=== PATIENT | female | born 1955 | race Caucasian/White ===

== ENCOUNTER 2021-02-22 11:38 | Observation (INO) | payer OTHER ==
[2021-02-22 11:55] LABS: Urine Blood Negative (Negative); Urine Glucose Negative (Negative); Urine Protein Trace (Negative); Urine pH 5.5 (5.0-7.0)
[2021-02-22 12:28] LABS: Urine Bacteria <20 /HPF (<20)
[2021-02-22 12:30] LABS: Urine Other Components 2+ (NONE SEEN)
--- NOTE | 2021-02-22 12:55 | RAD REPORT ---
EXAM DESCRIPTION: CT - Stone Protocol - 02/22/2021 12:32 pm CLINICAL HISTORY: Left flank pain COMPARISON: None. TECHNIQUE: Axial 5 mm thick images were obtained without oral or IV contrast. The [id number] span s the entirety of the system partially obscuring uppermost abdomen and lung bases. All CT scans are performed using dose optimization technique as appropriate and may include automated exposure control or mA/KV adjustment according to patient size. FINDINGS: Trace left pleural fluid with a wedge-shaped defects in the left lower lobe. Small hiatal hernia. Coronary artery calcifications. No pericardial effusion. No focal liver lesions are identified. Cholelithiasis noted. No adrenal masses. Partial gastrectomy. Low-density exophytic right lower pole renal lesion which is likely a cyst. No urinary tract calculi or hydronephrosis identified. Bladder is unremarkable. No bowel obstruction. Diverticulosis without d iverticulitis. Atherosclerosis. Normal appendix. IMPRESSION: No acute intra-abdominal abnormality. Specifically, no urinary tract calculi or hydronep hrosis. Wedge-shaped airspace disease in the left lower lobe could explain the patient's left flank s ymptoms with the differential including infectious or inflammatory processes as well as pulmonary inf arcts.
--- NOTE | 2021-02-22 12:59 | RAD REPORT ---
EXAM DESCRIPTION: RAD - Chest Single View - 02/22/2021 12:47 pm CLINICAL HISTORY: COUGH COMPARISON: Two view chest December 2018 TECHNIQUE: AP portable chest image was obtained 02/22/2021 12:47 pm . FINDINGS: Linear stranding in the mid left lung field is present most likely scarring or chronic ate lectasis. This is progressive from 2019. An acute infiltrate not identified. No acute failure or volu me overload. Heart and vasculature are normal. No measurable pleural effusion and no pneumothorax. No acute bony abnormality seen. No acute aortic findings suspected. IMPRESSION: No acute cardiopulmonary process. Scarring or chronic atelectasis changes are present in the mid left lung field.
[2021-02-22] MEDS ORDERED: CEFTRIAXONE/SWI 1gm 1 GM/10 ML SYR ONE (13:23)
[2021-02-22] MEDS ORDERED: NA CHLORIDE 0.9% 1,000 ML ONE (13:23)
[2021-02-22 13:45] LABS: Albumin 3.1 g/dL (3.4-5.0); Bilirubin Direct 0.5 mg/dL (0-0.2); Bilirubin Total 2.1 mg/dL (0.2-1.0); Potassium 4.2 mmol/L (3.5-5.1); Protein, Total 8.2 g/dL (6.4-8.2)
--- NOTE | 2021-02-22 16:44 | ER ---
Nurse's Notes [facility] [place] Name: Marie Mayer Age: 65 yrs Sex: Female : 1955 Arrival Date: 02/22/2021 Time: 11:42 Bed 24 Private MD: Diagnosis: Pneumonia, unspecified organism;Acute kidney failure, unspecified-on chronic;UTI/ Urinary tract infection, site not specified;Viral pneumonia, unspecified-Covid 19 Presentation: 02/22 11:43 Chief complaint: Patient states: left lower back pain and dark colored urine x 3 days. sv Sent by Dr Breen. Coronavirus screen: Client denies travel out of the [place] in the last 14 days. At this time, the client does not indicate any symptoms associated with coronavirus-19. Ebola Screen: No symptoms or risks identified at this time. Risk Assessment: Do you want to hurt yourself or someone else? Patient reports no desire to harm self or others. Onset of symptoms was February 19, 2021. 11:43 Method Of Arrival: Ambulatory sv 11:43 Acuity: CANDIDO 3 sv 11:45 Initial Sepsis Screen: Does the patient meet any 2 criteria? No. Patient's initial sv sepsis screen is negative. Does the patient have a suspected source of infection? No. Patient's initial sepsis screen is negative. Triage Assessment: 11:43 General: Appears in no apparent distress. comfortable, well developed, Behavior is sv calm, cooperative, appropriate for age. Pain: Denies pain. Neuro: Level of Consciousness is awake, alert, obeys commands, Oriented to person, place, time, situation, Gait is steady. Respiratory: Respiratory effort is even, unlabored. Historical: - Allergies: 11:44 No Known Drug Allergies; sv - PMHx: 15:33 Stage 3 Kidney Disease; vg1 - PSHx: 11:44 Knee; gastric sleeve; sv - Immunization history:: Client reports having NOT received the Covid vaccine. - Social history:: Smoking status: Patient denies any tobacco usage or history of. - Family history:: not pertinent. Screenin:38 Abuse screen: Denies threats or abuse. Nutritional screening: No deficits noted. vg1 Tuberculosis screening: No symptoms or risk factors identified. Fall Risk No fall in past 12 months (0 pts). No secondary diagnosis (0 pts). IV access (20 points). Ambulatory Aid- None/Bed Rest/Nurse Assist (0 pts). Gait- Normal/Bed Rest/Wheelchair (0 pts) Mental Status- Oriented to own ability (0 pts). Total Simpson Fall Scale indicates No Risk (0-24 pts). Assessment: 12:18 General: Appears in no apparent distress. comfortable, Behavior is calm, cooperative. vg1 Pain: Complains of pain in left mid back Pain currently is 1 out of 10 on a pain scale. at worst was 6 out of 10 on a pain scale. Quality of pain is described as sharp, Pain began 2-3 days ago. Neuro: Level of Consciousness is awake, alert, obeys commands, Oriented to person, place, time, situation. Cardiovascular: Patient's skin is warm and dry. Respiratory: Airway is patent Respiratory effort is even, unlabored. GI: Patient currently denies nausea, vomiting. : Reports dark urine Denies burning with urination, inability to void, urinary frequency. EENT: No signs and/or symptoms were reported regarding the EENT system. Derm: Skin is intact, is healthy with good turgor. Musculoskeletal: Circulation, motion, and sensation intact. 14:19 Reassessment: Patient appears in no apparent distress at this time. No changes from vg1 previously documented assessment. Patient and/or family updated on plan of care and expected duration. Pain level reassessed. Patient is alert, oriented x 3, equal unlabored respirations, skin warm/dry/pink. 15:32 Reassessment: Patient appears in no apparent distress at this time. No changes from vg1 previously documented assessment. Patient is alert, oriented x 3, equal unlabored respirations, skin warm/dry/pink. Patient denies pain at this time. 16:41 Reassessment: Patient appears in no apparent distress at this time. No changes from vg1 previously documented assessment. Patient and/or family updated on plan of care and expected duration. Pain level reassessed. Patient is alert, oriented x 3, equal unlabored respirations, skin warm/dry/pink. Patient denies pain at this time. 19:15 Reassessment: Attempted to call report, nurse unavailable to receive report at this ld1 time. 20:22 Reassessment: Patient appears in no apparent distress at this time. No changes from ld1 previously documented assessment. Patient and/or family updated on plan of care and expected duration. Pain level reassessed. Patient is alert, oriented x 3, equal unlabored respirations, skin warm/dry/pink. Vital Signs: 11:45 BP 109 / 74; Pulse 88; Resp 16; Temp 98.6; Pulse Ox 99% ; Weight 128.82 kg; Height 5 sv ft. 7 in. (170.18 cm); Pain 0/10; 12:18 BP 119 / 83; Pulse 77; Resp 16; Pulse Ox 98% on R/A; vg1 13:00 BP 108 / 71; Pulse 76; Resp 14; Pulse Ox 100% on R/A; vg1 14:00 BP 120 / 83; Pulse 70; Resp 14; Pulse Ox 100% on R/A; vg1 15:00 BP 119 / 78; Pulse 77; Resp 16; Pulse Ox 96% on R/A; vg1 16:00 BP 127 / 82; Pulse 74; Resp 14; Pulse Ox 99% on R/A; vg1 20:22 BP 124 / 86; Pulse 76; Resp 16; Pulse Ox 99% on R/A; ld1 11:45 Body Mass Index 44.48 (128.82 kg, 170.18 cm) sv ED Course: 11:42 Patient arrived in ED. rg4 11:43 Arm band placed on. sv 11:44 Triage completed. sv 12:13 Rk Correa MD is Attending Physician. chase 12:32 CT Stone Protocol In Process Unspecified. EDMS 12:36 Lorenza Carmona, RN is Primary Nurse. vg1 12:38 Patient has correct armband on for positive identification. Bed in low position. Call vg1 light in reach. Side rails up X 1. Adult w/ patient. 12:47 Chest Single View XRAY In Process Unspecified. EDMS 13:16 Initial lab(s) drawn, by me, sent to lab. Missed attempt(s): 22 gauge in right vg1 antecubital area. 13:25 Inserted saline lock: 22 gauge in left antecubital area, using aseptic technique. mw2 16:41 Shine Breen MD is Hospitalizing Provider. chase 20:55 No provider procedures requiring assistance completed. Patient admitted, IV remains in ld1 place. intact, bleeding controlled, No redness/swelling at site. Administered Medications: 13:25 Drug: NS 0.9% 500 ml Route: IV; Rate: bolus; Site: left antecubital; vg1 16:37 Follow up: IV Status: Completed infusion; IV Intake: 500ml vg1 13:28 Drug: Rocephin (cefTRIAXone) 1 grams Route: IV; Rate: per protocol; Site: left vg1 antecubital; 16:37 Follow up: Response: No adverse reaction; IV Status: Completed infusion vg1 14:08 Drug: NS 0.9% 1000 ml Route: IV; Rate: 125 ml/hr; Site: left antecubital; vg1 17:48 Drug: Zithromax (azithromycin) 500 mg Route: IVPB; Infused Over: 1 hrs; Site: left vg1 antecubital; 17:49 Drug: Lovenox (enoxaparin) 40 mg Route: Sub-Q; Site: left upper abdomen; vg1 18:43 Follow up: Response: No adverse reaction vg1 18:55 Drug: Albuterol HFA Inhaler 4 puffs Route: Inhalation; vg1 18:56 Drug: Aspirin 81 mg Route: PO; vg1 18:57 Drug: Pepcid (famotidine) 20 mg Route: IVP; Site: left antecubital; vg1 18:59 Drug: SOLU-Medrol (methylPrednisoLONE) 125 mg Route: IVP; Site: left antecubital; vg1 Intake: 16:37 IV: 500ml; Total: 500ml. vg1 Outcome: 16:44 Decision to Hospitalize by Provider. [facility] 20:55 Admitted to Med/surg accompanied by tech, via stretcher, room 6, with chart, Report ld1 called to BART Cheng. 20:55 Condition: stable 20:56 Patient left the ED. ld1 Signatures: Dispatcher [employer] EDAdele Mensah RN RN sv Anderson, Corey, MD MD cha Garcia, Rubi 4 Noel Dean 2 Lorenza Carmona RN RN vg1 Tomeka Jarvis RN RN ld1 Corrections: (The following items were deleted from the chart) 11:47 11:45 Pulse 88bpm; Resp 16bpm; Pulse Ox 99%; Temp 98.6F; 128.82 kg; Height 5 ft. 7 in.; sv BMI: 44.4; Pain 0/10; sv 13:25 13:25 Inserted saline lock: 22 gauge in left antecubital area, using aseptic technique. mw2 Blood collected. mw2 14:07 14:07 NS 0.9% 1000 ml IV at 125 ml/hr in right antecubital vg1 vg1 15:33 11:44 PMHx: None; sv vg1
--- NOTE | 2021-02-22 16:44 | EDPHYS ---
Physician Documentation [facility] Name: Marie Mayer Age: 65 yrs Sex: Female : 1955 Arrival Date: 02/22/2021 Time: 11:42 Bed 24 Private MD: LISA Physician Rk Correa HPI: 02/22 16:37 This 65 yrs old Female presents to ER via Ambulatory with complaints of Low chase Back Pain. 16:37 The patient presents with pain that is acute, with no known mechanism of injury. The chase symptoms are located in the left subscapular area and left mid back. The pain does not radiate. The problem was sustained from unknown cause. Onset: The symptoms/episode began/occurred 3 day(s) ago. Modifying factors: The patient symptoms are alleviated by remaining still, the patient symptoms are aggravated by nothing. Associated signs and symptoms: The patient has no apparent associated signs or symptoms. Severity of symptoms: At their worst the symptoms were moderate, in the emergency department the symptoms are unchanged. The patient has not experienced similar symptoms in the past. Historical: - Allergies: 11:44 No Known Drug Allergies; sv - PMHx: 15:33 Stage 3 Kidney Disease; vg1 - PSHx: 11:44 Knee; gastric sleeve; sv - Immunization history:: Client reports having NOT received the Covid vaccine. - Social history:: Smoking status: Patient denies any tobacco usage or history of. - Family history:: not pertinent. ROS: 16:37 Constitutional: Negative for fever, chills, and weight loss, Eyes: Negative for injury, chase pain, redness, and discharge, ENT: Negative for injury, pain, and discharge, Neck: Negative for injury, pain, and swelling, Cardiovascular: Negative for chest pain, palpitations, and edema, Abdomen/GI: Negative for abdominal pain, nausea, vomiting, diarrhea, and constipation, : Negative for injury, bleeding, discharge, and swelling, MS/Extremity: Negative for injury and deformity, Skin: Negative for injury, rash, and discoloration, Neuro: Negative for headache, weakness, numbness, tingling, and seizure, Psych: Negative for depression, anxiety, suicide ideation, homicidal ideation, and hallucinations, Allergy/Immunology: Negative for hives, rash, and allergies, Endocrine: Negative for neck swelling, polydipsia, polyuria, polyphagia, and marked weight changes, Hematologic/Lymphatic: Negative for swollen nodes, abnormal bleeding, and unusual bruising. 16:37 Respiratory: Positive for cough, shortness of breath, at rest. 16:37 Back: Positive for decreased range of motion, pain at rest, flank pain, on the left. Exam: 16:37 Constitutional: This is a well developed, well nourished patient who is awake, alert, chase and in no acute distress. Head/Face: Normocephalic, atraumatic. Eyes: Pupils equal round and reactive to light, extra-ocular motions intact. Lids and lashes normal. Conjunctiva and sclera are non-icteric and not injected. Cornea within normal limits. Periorbital areas with no swelling, redness, or edema. ENT: Nares patent. No nasal discharge, no septal abnormalities noted. Tympanic membranes are normal and external auditory canals are clear. Oropharynx with no redness, swelling, or masses, exudates, or evidence of obstruction, uvula midline. Mucous membranes moist. Neck: Trachea midline, no thyromegaly or masses palpated, and no cervical lymphadenopathy. Supple, full range of motion without nuchal rigidity, or vertebral point tenderness. No Meningismus. Chest/axilla: Normal chest wall appearance and motion. Nontender with no deformity. No lesions are appreciated. Cardiovascular: Regular rate and rhythm with a normal S1 and S2. No gallops, murmurs, or rubs. Normal PMI, no JVD. No pulse deficits. Respiratory: Lungs have equal breath sounds bilaterally, clear to auscultation and percussion. No rales, rhonchi or wheezes noted. No increased work of breathing, no retractions or nasal flaring. Abdomen/GI: Soft, non-tender, with normal bowel sounds. No distension or tympany. No guarding or rebound. No evidence of tenderness throughout. Back: No spinal tenderness. No costovertebral tenderness. Full range of motion. Female : Normal external genitalia. Skin: Warm, dry with normal turgor. Normal color with no rashes, no lesions, and no evidence of cellulitis. MS/ Extremity: Pulses equal, no cyanosis. Neurovascular intact. Full, normal range of motion. Neuro: Awake and alert, GCS 15, oriented to person, place, time, and situation. Cranial nerves II-XII grossly intact. Motor strength 5/5 in all extremities. Sensory grossly intact. Cerebellar exam normal. Normal gait. Psych: Awake, alert, with orientation to person, place and time. Behavior, mood, and affect are within normal limits. Vital Signs: 11:45 BP 109 / 74; Pulse 88; Resp 16; Temp 98.6; Pulse Ox 99% ; Weight 128.82 kg; Height 5 sv ft. 7 in. (170.18 cm); Pain 0/10; 12:18 BP 119 / 83; Pulse 77; Resp 16; Pulse Ox 98% on R/A; vg1 13:00 BP 108 / 71; Pulse 76; Resp 14; Pulse Ox 100% on R/A; vg1 14:00 BP 120 / 83; Pulse 70; Resp 14; Pulse Ox 100% on R/A; vg1 15:00 BP 119 / 78; Pulse 77; Resp 16; Pulse Ox 96% on R/A; vg1 16:00 BP 127 / 82; Pulse 74; Resp 14; Pulse Ox 99% on R/A; vg1 20:22 BP 124 / 86; Pulse 76; Resp 16; Pulse Ox 99% on R/A; ld1 11:45 Body Mass Index 44.48 (128.82 kg, 170.18 cm) sv MDM: 12:13 Patient medically screened. [facility] 16:39 Differential diagnosis: strain, fracture, contusion. Data reviewed: vital signs, nurses chase notes, lab test result(s), EKG, radiologic studies, CT scan, plain films. 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 Test interpretation: by ED physician or midlevel provider: ECG, plain radiologic studies. Counseling: I had a detailed discussion with the patient and/or guardian regarding: the historical points, exam findings, and any diagnostic results supporting the discharge/admit diagnosis, lab results, radiology results, the need for further work-up and treatment in the hospital. 02/22 11:55 Order name: Urine Microscopic Only; Complete Time: 16:19 sv 02/22 11:55 Order name: Urine Dipstick-Ancillary; Complete Time: 12:14 EDMS 02/22 12:16 Order name: Basic Metabolic Panel; Complete Time: 16:19 chase 02/22 12:16 Order name: CBC with Diff; Complete Time: 17:01 [facility] 02/22 12:16 Order name: Hepatic Function; Complete Time: 16:19 [facility] 02/22 12:16 Order name: Lipase; Complete Time: 16:19 [facility] 02/22 12:16 Order name: Chest Single View XRAY; Complete Time: 16:19 [facility] 02/22 12:16 Order name: Urine Culture [facility] 02/22 16:35 Order name: COVID-19 : Document "Date of Symptom Onset" if Symptomatic. [facility] 02/22 16:40 Order name: Lactate; Complete Time: 17:52 [facility] 02/22 16:40 Order name: Blood Culture Adult (2) [facility] 02/22 17:03 Order name: D-Dimer [facility] 02/22 17:44 Order name: D-Dimer; Complete Time: 17:52 [facility] 02/22 18:34 Order name: SARS-COV-2 RT PCR; Complete Time: 18:35 [facility] 02/22 12:16 Order name: IV Saline Lock; Complete Time: 13:25 [facility] 02/22 12:16 Order name: CT Stone Protocol; Complete Time: 16:19 [facility] 02/22 16:35 Order name: CT Chest Wo Con [facility] 02/22 16:44 Order name: US Extremity Venous W Compression Suresh [facility] 02/22 16:54 Order name: Vent Perfusion VQ Scan [facility] 02/22 19:09 Order name: CT [facility] 02/22 19:09 Order name: US [facility] 02/22 12:16 Order name: Labs collected and sent; Complete Time: 13:16 [facility] Administered Medications: 13:25 Drug: NS 0.9% 500 ml Route: IV; Rate: bolus; Site: left antecubital; vg1 16:37 Follow up: IV Status: Completed infusion; IV Intake: 500ml vg1 13:28 Drug: Rocephin (cefTRIAXone) 1 grams Route: IV; Rate: per protocol; Site: left vg1 antecubital; 16:37 Follow up: Response: No adverse reaction; IV Status: Completed infusion vg1 14:08 Drug: NS 0.9% 1000 ml Route: IV; Rate: 125 ml/hr; Site: left antecubital; vg1 17:48 Drug: Zithromax (azithromycin) 500 mg Route: IVPB; Infused Over: 1 hrs; Site: left vg1 antecubital; 17:49 Drug: Lovenox (enoxaparin) 40 mg Route: Sub-Q; Site: left upper abdomen; vg1 18:43 Follow up: Response: No adverse reaction vg1 18:55 Drug: Albuterol HFA Inhaler 4 puffs Route: Inhalation; vg1 18:56 Drug: Aspirin 81 mg Route: PO; vg1 18:57 Drug: Pepcid (famotidine) 20 mg Route: IVP; Site: left antecubital; vg1 18:59 Drug: SOLU-Medrol (methylPrednisoLONE) 125 mg Route: IVP; Site: left antecubital; vg1 Disposition Summary: 02/22/21 16:44 Hospitalization Ordered Hospitalization Status: Inpatient Admission chase Provider: Shine Breen cha Condition: Stable chase Problem: new chase Symptoms: have improved chase Bed/Room Type: Standard chase Location: Intensive Care Unit(02/22/21 18:50) dw Room Assignment: 6-(02/22/21 18:50) dw Diagnosis - Pneumonia, unspecified organism chase - Acute kidney failure, unspecified - on chronic chase - UTI/ Urinary tract infection, site not specified chase - Viral pneumonia, unspecified - Covid 19 chase Forms: - Medication Reconciliation Form chase - SBAR form chase Signatures: Dispatcher [employer] Adele Bhakta RN Ariella Roper RN RN dw Anderson, Corey, MD MD cha Garcia, Victoria RN RN vg1 Corrections: (The following items were deleted from the chart) 15:33 11:44 PMHx: None; vg1 18:50 16:44 Telemetry/MedSurg (Inpatient) chase dw 18:50 16:44 chase dw
[2021-02-22 16:54] LABS: Absolute Lymphocytes (CBC) 1.6 K/uL (0.7-4.9); Basophils % 0.7 % (0-1.3); Hematocrit 31.5 % (36.0-45.0); Lymphocytes % 19.8 % (15.3-44.8); MPV 7.9 fL (7.6-11.3); RBC Red Blood Cell Count 3.53 M/uL (3.86-4.86)
[2021-02-22] MEDS ORDERED: NA CHLORIDE 0.9% 250 ML ONE (17:08)
[2021-02-22] MEDS ORDERED: AZITHROMYCIN 500 MG INJ IVPB ONE (17:08)
[2021-02-22] MEDS ORDERED: ENOXAPARIN 40 MG/0.4 ML SQ ONE (17:12)
--- NOTE | 2021-02-22 19:07 | RAD REPORT ---
EXAM DESCRIPTION: US - Extrem Venous W Compress Suresh - 02/22/2021 6:33 pm CLINICAL HISTORY: PAIN COMPARISON: None. TECHNIQUE: Real-time sonographic evaluation of the bilateral lower extremity common femoral, superfi cial femoral, popliteal and posterior tibial veins was performed. FINDINGS: Normal compressibility, flow augmentation, phasic flow and spontaneous flow are identified in the left and right lower extremity common femoral, superficial femoral, popliteal and posterior t ibial veins. No intraluminal filling defects seen. IMPRESSION: No DVT in either lower extremity.
--- NOTE | 2021-02-22 19:07 | RAD REPORT ---
EXAM DESCRIPTION: CT - Thorax Wo Con - 02/22/2021 5:09 pm CLINICAL HISTORY: PAIN, left-sided back and flank pain, history of gastric sleeve COMPARISON: Stone Protocol dated 02/22/2021 TECHNIQUE: Axial 5 mm thick images of the chest were obtained without IV contrast. All CT scans are performed using dose optimization technique as appropriate and may include automated exposure control or mA/KV adjustment according to patient size. FINDINGS: No acute infiltrate suspected. Irregular areas of subpleural parenchymal opacification see n in the lateral and posterlateral left base similar to the abdomen study from earlier in the day. Th is is probably a combination of atelectasis and scarring. Acute infiltrates possible but probably les ser in likelihood. Neoplastic etiology is unlikely but monitoring will be needed to assure no growth. Trace amount of pleural fluid seen in the medial gutter on the left. No pneumothorax. No abnormal mediastinal or hilar masses or lymphadenopathy seen. No gross aortic or pulmonary artery finding suspected. Assessment is limited in the absence of IV contrast. No chest wall mass or abnormal axillary lymphadenopathy. Limited upper abdomen imaging shows postsurgical changes to the stomach. Small hiatal hernia is prese nt. IMPRESSION: Left base subpleural parenchymal opacification favored to be a combination of scarring a nd atelectasis. Infiltrate is a lesser likelihood. Mass lesion is also felt be unlikely but monitoring will be needed with repeat CT imaging in 6-12 mon ths.
[2021-02-22] MEDS ORDERED: ASPIRIN 81 MG CHEWABLE TABLET ONE (19:08)
[2021-02-22] MEDS ORDERED: ALBUTEROL INHALER 60 PUFF/8 GM IH ONE (19:08)
[2021-02-22] MEDS ORDERED: FAMOTIDINE 20 MG/2 ML VIAL IV ONE (19:08)
[2021-02-22] MEDS ORDERED: METHYLPREDNISOLONE 125 MG INJ ONE (19:08)
[2021-02-22] MEDS ORDERED: ENOXAPARIN 30 MG/0.3 ML SQ SCH (20:57)
[2021-02-22] MEDS ORDERED: ALBUTEROL INHALER 60 PUFF/8 GM IH PRN (20:57)
[2021-02-22] MEDS ORDERED: ONDANSETRON 4 MG/2 ML VIAL IV PRN (20:57)
[2021-02-22] MEDS ORDERED: ALBUTEROL 2.5 MG/3 ML NEB SOL NEB PRN (20:57)
[2021-02-22] MEDS ORDERED: ACETAMINOPHEN 325 MG TABLET PO PRN (20:57)
[2021-02-22] MEDS ORDERED: MORPHINE 2 MG/ML SYR IV PRN (20:57)
[2021-02-22] MEDS ORDERED: IPRATROPIUM BROM 0.5MG/2.5ML NEB PRN (20:57)
[2021-02-22] MEDS ORDERED: NA CHLORIDE 0.9% 1,000 ML IV SCH (20:57)
[2021-02-22] MEDS ORDERED: CEFTRIAXONE 1 GM/NS 50 ML 1 GM/50 ML BAG IV SCH (21:00)
[2021-02-22 21:24] VITALS: BMI 44.4
[2021-02-22 21:35] VITALS: O2SAT 96
[2021-02-22] MEDS: FAMOTIDINE 20 MG/2 ML VIAL IV SCH (22:16)
[2021-02-22] MEDS: NA CHLORIDE 0.9% 1,000 ML IV SCH (23:30)
[2021-02-23] MEDS: METHYLPREDNISOLONE 40 MG INJ IV SCH ×2 (00:14→09:58)
--- NOTE | 2021-02-23 00:48 | HP ---
Date of Admission: 02/22/2021 Chief Complaint: Abdominal pain. History Of Present Illness: This is a 65-year-old very pleasant female patient who called office tojose antonio perez requesting appointment because she was concerned about kidney stone or kidney infection. The haily ent was seen after she called office, and she reported she started to have this left-sided abdominal pain in the left posterior flank region and that is why she called the office for appointment. She s ays that she took Augmentin for 5 days, which was prescribed by her [facility], and this Au gmentin was started on 02/07/2021 for sinus infection type of problem. As of past weekend on February 19, 2021, she started to have left posterior flank pain. Has had some fever and chills and as of February, her pain got better but did not go away completely. She feels like her urine is darker in co zhane than normal, but denies any dysuria. Today, she feels weak and dizzy, and she took her blood pre ssure medication this morning, and when I saw her at office, her manual blood pressure was 90/60. Af ter I evaluated her, I advised her to go to the emergency room. Details were discussed with ER physi cians and workup was requested, and after all the workup completed, the patient was admitted to [facility]. Allergies: TO CIPRO CAUSING JOINT PAIN. Medications: Amlodipine 5 mg daily, atorvastatin 20 mg daily in the evening, carvedilol 6.25 mg 2 ti mes a day, famotidine 40 mg p.o. daily at bedtime, levothyroxine 75 mcg p.o. daily, Claritin 10 mg da chapin as needed for allergies, vitamin B12 1 mg p.o. daily. Review of Systems: GI: As mentioned above. Constitutional: As mentioned above. Genitourinary: As mentioned above. All other systems reviewed and negative. Past Medical History: Significant for allergic rhinitis, hypothyroidism, hypertension, hyperlipidemi a, gastroesophageal reflux disease, diverticulosis, chronic kidney disease stage 3, osteoarthritis at multiple sites. Past Surgical History: Gastric sleeve surgery on September 26, 2012 and her weight prior to surgery wa s 344 pounds. Past surgical history also significant for arthroplasty of knee done on January 28, 2019 a nd July 30, 2018. Family History: Mother had coronary artery disease, atrial fibrillation, diabetes, and , b laurent with coronary artery disease. Social History: Prior history of smoking, not at present time. Use of alcohol, glass of wine weekly . Physical Examination: Vital Signs: At office manual blood pressure 90/60, pulse 76, temperature 95.3, respiratory rate 18, weight 284 pounds, height 67 inches. General: Awake, alert, oriented, not in distress. HEENT: Head atraumatic, normocephalic. Conjunctivae nonerythematous. Sclerae white. Mouth, no thr ush or edema noted. Ears/Nose, no mass, lesion, discharge noted. Neck: Supple. No JVD, lymph nodes, bruit, thyromegaly noted. Lungs: Bilateral good equal air entry. Clear to auscultation. No rhonchi. No rales. Heart: Normal heart sounds, no murmur or gallop. Abdomen: Soft, bowel sounds normal. No guarding, rigidity, mass, hepatosplenomegaly, distention, or bruit noted. Abdominal exam shows presence of mild tenderness in the left posterior and lateral flan k region. Extremities: No leg edema. No calf tenderness. Skin: No rash, ulcer, cellulitis. Lymphatics: No lymph node enlargement in neck, supraclavicular, infraclavicular region. Neuro: No focal neurological deficit. Chest: Unremarkable. External Genitalia: Deferred. Rectal: Deferred. Laboratory Data: White count 8.1, hemoglobin 11, platelets 245. D-dimer 1942. Sodium 136, potassiu m 4.2, chloride 103, bicarb 26, BUN 22, creatinine 1.83, glucose 98, lactic acid 1.6, total bilirubin 2.1. Rest of the liver function tests unremarkable. Lipase 126. Urinalysis; 1+ leukocyte esterase , 5 to 10 rbc's, trace protein. Chest x-ray, no acute cardiopulmonary changes. CAT scan of abdomen was unremarkable for any acute changes. No kidney stone, but it did show wedge-shaped density in the left lower lobe. CAT scan of the chest without contrast shows left basal opacity. Venous Doppler o f both lower extremities negative for DVT and COVID-19 test positive. Impression: 1.COVID-19 infection. 2.Pneumonia. 3.Volume depletion. 4.Chronic kidney disease stage 3 with acute worsening. 5.Anemia due to chronic kidney disease. 6.Hypertension. 7.Hyperlipidemia. 8.Gastroesophageal reflux disease. 9.Hypothyroidism. 10.Diverticulosis. 11.Osteoarthritis, multiple sites. Plan: Admit the patient to hospital for further evaluation and management of this problem. The haily ent is appropriate for inpatient and is expected to spend 2 midnights in the hospital. Her D-dimer i s high, but clinically she is at low probability from pulmonary embolism. V/Q scan will be done john rrow. The patient received 40 mg of Lovenox subcutaneous injection in the emergency room and we will continue Lovenox 40 mg daily. We will treat her empirically with Rocephin and azithromycin, IV Solu -Medrol per order. We will also give her ivermectin per order. Consult data officer, Dr. Kirby. We will repeat blood work tomorrow morning. Home medications will be continued per order. As of t omorrow morning, Dr. Denise, hospitalist will be covering this patient in my absence, and I have call ed him and discussed all the details with him. BRYAN/MODL Voice ID: [id number]
[2021-02-23 04:11] VITALS: TEMP 97.2
[2021-02-23 05:13] LABS: Absolute Lymphocytes (CBC) 0.6 K/uL (0.7-4.9); Basophils % 0.2 % (0-1.3); Hematocrit 33.1 % (36.0-45.0); Lymphocytes % 9.4 % (15.3-44.8); MPV 8.1 fL (7.6-11.3); RBC Red Blood Cell Count 3.66 M/uL (3.86-4.86)
[2021-02-23 05:29] LABS: Potassium 4.7 mmol/L (3.5-5.1)
--- NOTE | 2021-02-23 05:53 | P.PN ---
Subjective Date of Service: 02/23/21 Physical Examination - Vital Signs Temperature: 97.2 F Blood Pressure: 125/70 Pulse: 78 Respirations: 17 Pulse Ox (%): 97 - Studies Laboratory Data (last 24 hrs) 02/22/21 16:44: WBC 8.10, Hgb 11.0 L, Hct 31.5 L, Plt Count 245 02/22/21 13:15: Sodium 136, Potassium 4.2, BUN 22 H, Creatinine 1.83 H, Glucose 98, Total Bilirubin 2.1 H, AST 13 L, ALT 20, Alkaline Phosphatase 70, Lipase 126 Assessment & Plan Discharge Plan: Home Physician Review Additional Text: Physical Examination: Vital Signs: General: Awake, alert, oriented, not in distress. HEENT: Head atraumatic, normocephalic. Conjunctivae nonerythematous. Sclerae white. Mouth, no thrush or edema noted. Ears/Nose, no mass, lesion, discharge noted. Neck: Supple. No JVD, lymph nodes, bruit, thyromegaly noted. Lungs: Bilateral good equal air entry. Clear to auscultation. No rhonchi. No rales. Heart: Normal heart sounds, no murmur or gallop. Abdomen: Soft, bowel sounds normal. No guarding, rigidity, mass, hepato splenomegaly, distention, or bruit noted. Abdominal exam shows presence of mild tenderness in the left posterior and lateral flank region. Extremities: No leg edema. No calf tenderness. Skin: No rash, ulcer, cellulitis. Lymphatics: No lymph node enlargement in neck, supraclavicular, infraclavicular region. Neuro: No focal neurological deficit. Chest: Unremarkable. External Genitalia: Deferred. Rectal: Deferred. Laboratory Data: White count 8.1, hemoglobin 11, platelets 245. D-dimer 1942. Sodium 136, potassium 4.2, chloride 103, bicarb 26, BUN 22, creatinine 1.83, glucose 98, lactic acid 1.6, total bilirubin 2.1. Rest of the liver function tests unremarkable. Lipase 126. Urinalysis; 1+ leukocyte esterase, 5 to 10 rbc's, trace protein. Chest x-ray, no acute cardiopulmonary changes. CAT scan of abdomen was unremarkable for any acute changes. No kidney stone, but it did show wedge-shaped density in the left lower lobe. CAT scan of the chest without contrast shows left basal opacity. Venous Doppler of both lower extremities negative for DVT and COVID-19 test positive. Impression: COVID-19 infection. Pneumonia. Volume depletion. Chronic kidney disease stage 3 with acute worsening. Anemia due to chronic kidney disease. Hypertension. Hyperlipidemia. Gastroesophageal reflux disease. Hypothyroidism. Diverticulosis. Osteoarthritis, multiple sites. Plan: Admit the patient to hospital for further evaluation and management of this problem. The patient is appropriate for inpatient and is expected to spend 2 midnights in the hospital. Her D-dimer is high, but clinically she is at low probability from pulmonary embolism. V/Q scan will be done tomorrow. The patient received 40 mg of Lovenox subcutaneous injection in the emergency room and we will continue Lovenox 40 mg daily. We will treat her empirically with Rocephin and azithromycin, IV Solu-Medrol per order. We will also give her ivermectin per order. Consult material man, Dr. Kirby. We will repeat blood work tomorrow morning. Home medications will be continued per order. As of tomorrow morning, Dr. Denise, hospitalist will be covering this patient in my absence, and I have called him and discussed all the details with him.
--- NOTE | 2021-02-23 08:02 | RAD REPORT ---
EXAM DESCRIPTION: RAD - Chest Single View - 02/23/2021 5:58 am CLINICAL HISTORY: Chest pain COMPARISON: Chest CT from 02/22/2021 TECHNIQUE: AP portable chest image was obtained . FINDINGS: Similar scarring in the left mid lung. Faint increasing airspace opacities in the upper luis ngs bilaterally. The heart size is similar. No fractures are identified. No pneumothorax or pleural e ffusions are seen. Visualized upper abdomen is unremarkable. IMPRESSION: Increased prominence of some of the upper lung interstitial markings probably a reflecti on of technique. Pneumonia less likely.
--- NOTE | 2021-02-23 08:45 | P.CNS ---
Date of Consult: 02/23/21 Reason for Consult: Abnormal CT Chief Complaint: Abnormal CT scan History of Present Illness: Patient is 65 years of age admitted from the office for suspicion of for renal infection she had some left-sided abdominal pain denied any pulmonary symptoms as treated with Augmentin denies any urinary tract symptoms tested positive for merino virus CT scan shows some pleural changes on the left lung no evidence of merino virus induced lung injury Allergies No Known Drug Allergies Allergy (Verified 02/23/21 00:05) Unknown Home Medications: Atorvastatin Calcium 1 tab PO BEDTIME 02/22/21 Famotidine 1 tab PO DAILY 02/22/21 Levothyroxine Sodium [Levothyroxine] 1 tab PO DAILY 02/22/21 Loratadine [Claritin*] 1 tab PO DAILY 02/22/21 carvediloL [Carvedilol] 1 tab PO BID 02/22/21 Amoxicillin/Potassium Clav [Augmentin 500-125 Tablet] 0.5 each PO BID #14 tablet 02/23/21 Ascorbate Calcium [Vitamin C] 500 mg PO TID #90 tablet 02/23/21 Aspirin [Aspirin EC 81 MG] 81 mg PO DAILY #30 tablet. 02/23/21 Cholecalciferol (Vitamin D3) [Vitamin D 1000 Iu Tab] 2,000 unit PO DAILY #60 tab 02/23/21 Thiamine HCl 100 mg PO BID #60 tablet 02/23/21 Zinc Sulfate [Zinc Sulfate*] 220 mg PO DAILY #30 cap 02/23/21 - Past Medical/Surgical History -: Stage 3 Kidney Disease -: Hypertension -: Hyperlipidemia -: Hypothyroidism -: GERD -: Knee Surgery -: Gastric Sleeve - Social History Smoking Status: Never smoker Alcohol use: Yes CD- Drugs: No Caffeine use: Yes Place of Residence: Home Review of Systems 10-point ROS is otherwise unremarkable Physical Examination Temp Pulse Resp BP Pulse Ox 97.2 F 78 17 125/70 97 02/23/21 05:53 02/23/21 05:53 02/23/21 05:53 02/23/21 05:53 02/23/21 05:53 General: Alert, Oriented x3 Neck: Supple Respiratory: Clear to auscultation bilaterally Laboratory Data (last 24 hrs) 02/22/21 16:44: WBC 8.10, Hgb 11.0 L, Hct 31.5 L, Plt Count 245 02/22/21 13:15: Sodium 136, Potassium 4.2, BUN 22 H, Creatinine 1.83 H, Glucose 98, Total Bilirubin 2.1 H, AST 13 L, ALT 20, Alkaline Phosphatase 70, Lipase 126 - Problems (1) Abnormal CT scan of lung Current Visit: Yes Status: Acute Plan: Patient is 65 years of age incidental positive for merino virus came in with the left lower back pain previous history of UTI apparently felt the same as per patient denies any pulmonary complaints multiple pleural abnormalities in the left-sided niece to be followed up doubt merino virus pneumonia patient is chronic renal failure vital signs stable doubt pulmonary embolism mild anemia recommend discharge home follow with me in a month repeat a CT scan this added this low-dose aspirin no steroids no fever urine cultures negative blood cultures pending
--- NOTE | 2021-02-23 08:46 | P.DS ---
Admission Date: 02/22/21 Discharge Date: 02/23/21 Primary Care Provider: Dr. Breen Disposition: ROUTINE DISCHARGE Discharge Condition: GOOD Reason for Admission: Left Flank pain Consultations: Pulmonary-Dr. Kirby Procedures: COVID: Positive CT chest: FINDINGS: No acute infiltrate suspected. Irregular areas of subpleural parenchymal opacification seen in the lateral and posterlateral left base similar to the abdomen study from earlier in the day. This is probably a combination of atelectasis and scarring. Acute infiltrates possible but probably lesser in likelihood. Neoplastic etiology is unlikely but monitoring will be needed to assure no growth. Trace amount of pleural fluid seen in the medial gutter on the left. No pneumothorax. No abnormal mediastinal or hilar masses or lymphadenopathy seen. No gross aortic or pulmonary artery finding suspected. Assessment is limited in the absence of IV contrast. No chest wall mass or abnormal axillary lymphadenopathy. Limited upper abdomen imaging shows postsurgical changes to the stomach. Small hiatal hernia is present. IMPRESSION: Left base subpleural parenchymal opacification favored to be a combination of scarring and atelectasis. Infiltrate is a lesser likelihood. Mass lesion is also felt be unlikely but monitoring will be needed with repeat CT imaging in 6-12 months. Follow up CXR: FINDINGS: Similar scarring in the left mid lung. Faint increasing airspace opacities in the upper lungs bilaterally. The heart size is similar. No fractures are identified. No pneumothorax or pleural effusions are seen. Visualized upper abdomen is unremarkable. IMPRESSION: Increased prominence of some of the upper lung interstitial markings probably a reflection of technique. Pneumonia less likely. CT AB: FINDINGS: Trace left pleural fluid with a wedge-shaped defects in the left lower lobe. Small hiatal hernia. Coronary artery calcifications. No pericardial effusion. No focal liver lesions are identified. Cholelithiasis noted. No adrenal masses. Partial gastrectomy. Low-density exophytic right lower pole renal lesion which is likely a cyst. No urinary tract calculi or hydronephrosis identified. Bladder is unremarkable. No bowel obstruction. Diverticulosis without diverticulitis. Atherosclerosis. Normal appendix. IMPRESSION: No acute intra-abdominal abnormality. Specifically, no urinary tract calculi or hydronephrosis. Wedge-shaped airspace disease in the left lower lobe could explain the patient's left flank symptoms with the differential including infectious or inflammatory processes as well as pulmonary infarcts. Venous doppler: FINDINGS: Normal compressibility, flow augmentation, phasic flow and spontaneous flow are identified in the left and right lower extremity common femoral, superficial femoral, popliteal and posterior tibial veins. No in traluminal filling defects seen. IMPRESSION: No DVT in either lower extremity. Medical Problem List: Left flank pain with noted left base subpleural opacification likely scarring/atelectasis possible pneumonia Covid 19 positive asymptomatic Hypertension Acute on chronic renal disease stage III GERD with hiatal hernia Hyperlipidemia Brief History of Present Illness: 65-year-old female presented with left flank pain. Patient was seen by PCP due to possible kidney stone or kidney infection. Patient denied any significant chest pain, shortness of breath. Patient recently seen for upper respiratory sinus infection and provided Augmentin. Patient reported some fever and chills as of February 20. Pain has not improved. Patient was sent to the ER for further evaluation as blood pressure appeared low. Patient was given IV fluids. In the ER white count within normal range. Urinalysis unremarkable. Patient was found to be positive for COVID-19. CT scan showed left base subpleural opacification favoring scarring with atelectasis. Venous Doppler negative due to elevated D-dimer. Patient was admitted for further evaluation and treatment. Hospital Course: Patient presented with left flank pain. Patient was admitted for further evaluation. In the ER D-dimer was elevated. Venous Doppler negative. Urinalysis unremarkable. Patient recently treated for upper respiratory sinus infection. CT scan revealed left base subpleural opacification favoring scarring and atelectasis. Chest x-ray showed possible pneumonia. Patient was given IV fluids, steroid, and antibiotic therapy. Patient was found to be positive for COVID-19. No significant COVID-19 symptoms identified. Patient w as admitted for further evaluation and treatment. Due to elevated D-dimer there was some consideration of VQ scan. Patient was seen and evaluated by pulmonology. VQ scan cannot be performed due to COVID-19 protocol. Pulmonology felt this was not required. Pulmonology believes flank pain related to left base scarring/atelectasis or pneumonia. Low suspicion for pulmonary embolus noted. Patient has significantly improved. Patient on room air. White count remains in normal range. Pulmonology recommends to continue Augmentin 250 mg twice daily for 7 days. No need for steroids at this time. Patient will continue with vitamin supplementation for COVID-19 infection. Patient will continue with zinc 220 mg daily, thiamine 100 mg 1 pill twice daily, vitamin C 500 mg 3 times a day and vitamin D 2000 units daily. Patient may continue with yogurt or lactobacillus [id number]. The patient will also continue with aspirin 81 mg daily for at least 1 month. Patient may continue with albuterol inhaler 2 puffs 3 times a day as needed for shortness of breath. Patient will continue with CDC guidelines on COVID-19 isolation. Recommend incentive spirometer which will be provided. Recommend proning. Recommend social distancing, facemask use, and frequent handwashing. Education on atelectasis will be provided. Recommend follow-up with pulmonology in 1 to 2 weeks to follow-up his hospitalization. Recommend repeat CT scan in 3 to 6 months to reassess the scarring. This can be done with the help of pulmonology. Recommend follow-up with PCP in 1 to 2 weeks to follow-up hospitalization to continue her care. Patient with acute on chronic renal disease stage III. Patient appeared to be with mild volume depletion. With IV fluid hydration this has improved. Recommend increase fluid intake for the next couple of days. Recommend to recheck labBMP in 1 week. Recommend no further use of nonsteroidal to inflammatories. Future medications may need to be renally dosed. Patient with hypertension. Patient will continue with her current medicationcarvedilol 6.25 mg 1 pill twice daily. Recommend to maintain blood pressure less than 130/80. Further adjustment can be done by her PCP. Recommend to hold medication if blood pressure less than 110. Follow-up with PCP to further monitor and adjust medication. Patient with hyperlipidemia. At discharge she will continue with her medicationLipitor 20 mg daily. Patient with GERD and hiatal hernia. At discharge she will continue with her medicationPepcid 20 mg daily. Patient with hypothyroidism. At discharge patient continue with her medicationlevothyroxine 75 mcg daily. Vital Signs/Physical Exam: Temp Pulse Resp BP Pulse Ox 97.2 F 78 17 125/70 97 02/23/21 05:53 02/23/21 05:53 02/23/21 05:53 02/23/21 05:53 02/23/21 05:53 General: Alert, In no apparent distress, Oriented x3, Cooperative HEENT: Atraumatic Neck: Supple Respiratory: Clear to auscultation bilaterally, Normal air movement Cardiovascular: Normal pulses, Regular rate/rhythm Gastrointestinal: Normal bowel sounds, Soft and benign, Non-distended, No tenderness, No masses, No rebound, No guarding Musculoskeletal: No erythema, No tenderness, No warmth Integumentary: No tenderness/swelling Neurological: Normal speech, Normal strength at 5/5 x4 extr, Normal tone, Normal affect Laboratory Data at Discharge: WBC 6.30 K/uL (4.3-10.9) D 02/23/21 04:51 Hgb 11.1 g/dL (12.0-15.0) L 02/23/21 04:51 Hct 33.1 % (36.0-45.0) L 02/23/21 04:51 Plt Count 265 K/uL (152-406) 02/23/21 04:51 Sodium 137 mmol/L (136-145) 02/23/21 04:51 Potassium 4.7 mmol/L (3.5-5.1) 02/23/21 04:51 BUN 24 mg/dL (7-18) H 02/23/21 04:51 Creatinine 1.47 mg/dL (0.55-1.3) H 02/23/21 04:51 Glucose 136 mg/dL (74-106) H 02/23/21 04:51 Total Bilirubin 2.1 mg/dL (0.2-1.0) H 02/22/21 13:15 AST 13 U/L (15-37) L 02/22/21 13:15 ALT 20 U/L (12-78) 02/22/21 13:15 Alkaline Phosphatase 70 U/L (45-117) 02/22/21 13:15 Troponin I < 0.02 ng/mL (0.0-0.045) 02/23/21 00:56 Lipase 126 U/L (73-393) 02/22/21 13:15 Home Medications: Atorvastatin Calcium 1 tab PO BEDTIME 02/22/21 Famotidine 1 tab PO DAILY 02/22/21 Levothyroxine Sodium [Levothyroxine] 1 tab PO DAILY 02/22/21 Loratadine [Claritin*] 1 tab PO DAILY 02/22/21 carvediloL [Carvedilol] 1 tab PO BID 02/22/21 Amoxicillin/Potassium Clav [Augmentin 500-125 Tablet] 0.5 each PO BID #14 tablet 02/23/21 Ascorbate Calcium [Vitamin C] 500 mg PO TID #90 tablet 02/23/21 Aspirin [Aspirin EC 81 MG] 81 mg PO DAILY #30 tablet. 02/23/21 Cholecalciferol (Vitamin D3) [Vitamin D 1000 Iu Tab] 2,000 unit PO DAILY #60 tab 02/23/21 Thiamine HCl 100 mg PO BID #60 tablet 02/23/21 Zinc Sulfate [Zinc Sulfate*] 220 mg PO DAILY #30 cap 02/23/21 New Medications: Aspirin [Aspirin EC 81 MG] 81 mg PO DAILY #30 tablet. Amoxicillin/Potassium Clav [Augmentin 500-125 Tablet] 0.5 each PO BID #14 tablet Thiamine HCl 100 mg PO BID #60 tablet Ascorbate Calcium [Vitamin C] 500 mg PO TID #90 tablet Cholecalciferol (Vitamin D3) [Vitamin D 1000 Iu Tab] 2,000 unit PO DAILY #60 tab Zinc Sulfate [Zinc Sulfate*] 220 mg PO DAILY #30 cap Physician Discharge Instructions: Patient presented with left flank pain. Patient was admitted for further evaluation. In the ER D-dimer was elevated. Venous Doppler negative. Uri nalysis unremarkable. Patient recently treated for upper respiratory sinus infection. CT scan revealed left base subpleural opacification favoring scarring and atelectasis. Chest x-ray showed possible pneumonia. Patient was given IV fluids, steroid, and antibiotic therapy. Patient was found to be positive for COVID-19. No significant COVID-19 symptoms identified. Patient was admitted for further evaluation and treatment. Due to elevated D-dimer there was some consideration of VQ scan. Patient was seen and evaluated by pulmonology. VQ scan cannot be performed due to COVID-19 protocol. Pulmonology felt this was not required. Pulmonology believes flank pain related to left base scarring/atelectasis or pneumonia. Low suspicion for pulmonary embolus noted. Patient has significantly improved. Patient on room air. White count remains in normal range. Pulmonology recommends to continue Augmentin 250 mg twice daily for 7 days. No need for steroids at this time. Patient will c ontinue with vitamin supplementation for COVID-19 infection. Patient will continue with zinc 220 mg daily, thiamine 100 mg 1 pill twice daily, vitamin C 500 mg 3 times a day and vitamin D 2000 units daily. Patient may continue with yogurt or lactobacillus [id number]. The patient will also continue with aspirin 81 mg daily for at least 1 month. Patient may continue with albuterol inhaler 2 puffs 3 times a day as needed for shortness of breath. Patient will continue with CDC guidelines on COVID-19 isolation. Recommend incentive spirometer which will be provided. Recommend proning. Recommend social distancing, facemask use, and frequent handwashing. Education on atelectasis will be provided. Recommend follow-up with pulmonology in 1 to 2 weeks to follow-up his hospitalization. Recommend repeat CT scan in 3 to 6 months to reassess the scarring. This can be done with the help of pulmonology. Recommend follow-up with PCP in 1 to 2 weeks to follow-up hospitalization to continue her care. Patient with acute on chronic renal disease stage III. Patient appeared to be with mild volume depletion. With IV fluid hydration this has improved. Recommend increase fluid intake for the next couple of days. Recommend to recheck labBMP in 1 week. Recommend no further use of nonsteroidal to inflammatories. Future medications may need to be renally dosed. Patient with hypertension. Patient will continue with her current medicationcarvedilol 6.25 mg 1 pill twice daily. Recommend to maintain blood pressure less than 130/80. Further adjustment can be done by her PCP. Recommend to hold medication if blood pressure less than 110. Follow-up with PCP to further monitor and adjust medication. Patient with hyperlipidemia. At discharge she will continue with her medic ationLipitor 20 mg daily. Patient with GERD and hiatal hernia. At discharge she will continue with her medicationPepcid 20 mg daily. Patient with hypothyroidism. At discharge patient continue with her medicationlevothyroxine 75 mcg daily. Diet: AHA Activity: Ad bev Followup: NONE,NONE [Primary Care Provider] - Time spent managing pt's care (in minutes): 55
[2021-02-23] MEDS ORDERED: carvediloL 6.25 MG TAB PO SCH (09:00)
[2021-02-23] MEDS ORDERED: AMLODIPINE 5 MG TAB PO SCH (09:00)
[2021-02-23] MEDS ORDERED: LEVOTHYROXINE SOD 0.075 MG TAB PO SCH (09:00)
[2021-02-23] MEDS ORDERED: IVERMECTIN 3 MG TABLET PO ONE (09:00)
[2021-02-23] MEDS ORDERED: ASPIRIN 81 MG CHEWABLE TABLET PO SCH (09:00)
[2021-02-23] MEDS ORDERED: LORATADINE 10 MG TAB PO SCH (09:00)
[2021-02-23 09:02] LABS: Blood Morphology Comment NOT SEEN (NOT SEEN); Platelet Estimate ADEQ; White Blood Cell Scan OK (OK)
[2021-02-23] MEDS: FAMOTIDINE 20 MG/2 ML VIAL IV SCH (09:58)
[2021-02-23] MEDS: NA CHLORIDE 0.9% 1,000 ML IV SCH (09:58)
[2021-02-23] MEDS ORDERED: CEFTRIAXONE/SWI 1gm 1 GM/10 ML SYR IV SCH ×2 (12:00)
[2021-02-23 12:37] VITALS: BP 149/96
[2021-02-23] MEDS ORDERED: ENOXAPARIN 40 MG/0.4 ML SQ SCH (17:00)
[2021-02-23] MEDS ORDERED: AZITHROMYCIN IV 250 MG in NA CHLORIDE 0.9% 250 ML IVPB SCH (18:00)
[2021-02-23] MEDS ORDERED: ATORVASTATIN 20 MG TAB PO SCH (21:00)
--- NOTE | 2021-02-25 07:48 | EKG ---
Test Date: 2021-02-23 Test Time: 10:16:17 [employer] Laster: ALONZO MEASUREMENT RESULTS: Intervals: Rate: 88 WA: 188 QRSD: 88 QT: 384 QTc: 464 [place]: P: 47 WA: 188 QRS: -8 T: -7 INTERPRETIVE STATEMENTS: Normal sinus rhythm Moderate voltage criteria for LVH, may be normal variant Borderline ECG No previous ECG available for comparison Electronically Signed On 02-25-21 07:43:27 CDT by Mumtaz Collier
== END 2021-02-23 12:00 | disposition home or self-care (01) ==
LOC: ER 11:38 → ERHOLD 16:56 → INTOOBSV 16:56 → 3RD-ICU 20:42
PROVIDERS: ADMIT Internal Medicine; ATTEND Family Medicine
DX: R10.9 Unspecified abdominal pain (principal); U07.1 COVID-19; I12.9 Hypertensive chronic kidney disease with stage 1 through stage 4 chronic kidney disease, or unspecified chronic kidney disease; N18.30 Chronic kidney disease, stage 3 unspecified; N17.9 Acute kidney failure, unspecified; K44.9 Diaphragmatic hernia without obstruction or gangrene; K21.9 Gastro-esophageal reflux disease without esophagitis; E78.5 Hyperlipidemia, unspecified; Z98.84 Bariatric surgery status; R91.8 Other nonspecific abnormal finding of lung field; M15.9 Polyosteoarthritis, unspecified; Z87.891 Personal history of nicotine dependence; D63.1 Anemia in chronic kidney disease; E86.9 Volume depletion, unspecified
CPT/HCPCS: 96365; 93005; 87040 ×2; 87088; 85025 ×2; 87086; 80048 ×2; 36415; 87205; 85379; 80076; 83605; 84484 ×2; 83690; 83880; 71250; 76377; 74176; 71045 ×2; 93970; 94760; 96375; 96372; 99285; 96366; U0003; J0456; J1650 ×2; J0696 ×2; J7050; J7030 ×3; J2930; J2920 ×2; G0378 ×3; 81003; 81015